=== PATIENT | male | born 2000 ===

== ENCOUNTER 2021-10-30 01:25 | Emergency (ER) | payer OTHER ==
[2021-10-30] MEDS ORDERED: ONDANSETRON 4 MG/2 ML VIAL ONE (02:05)
[2021-10-30] MEDS ORDERED: FAMOTIDINE 20 MG/2 ML VIAL IV ONE (02:05)
[2021-10-30] MEDS ORDERED: NA CHLORIDE 0.9% 1,000 ML ONE ×2 (02:05→03:33)
[2021-10-30 02:20] LABS: Absolute Lymphocytes (CBC) 0.3 K/uL (0.7-4.9); Hematocrit 50.6 % (39.6-49.0); Lymphocytes % 1.7 % (15.3-44.8); MPV 10.5 fL (7.6-11.3); RBC Red Blood Cell Count 5.96 M/uL (4.33-5.43)
[2021-10-30 02:30] LABS: Albumin 4.7 g/dL (3.4-5.0); Potassium 4.2 mmol/L (3.5-5.1); Protein, Total 8.7 g/dL (6.4-8.2)
[2021-10-30 02:39] LABS: Urine Blood Negative (Negative); Urine Glucose Negative (Negative); Urine Protein Negative (Negative); Urine Specific Gravity >=1.030 (1.005-1.030)
[2021-10-30] MEDS ORDERED: CIPROFLOXACIN HCL 500 MG TAB ONE (04:41)
--- NOTE | 2021-10-30 04:46 | ER ---
Nurse's Notes [facility] Name: Rufus Galdamez Age: 21 yrs Sex: Male : 2000 Arrival Date: 10/30/2021 Time: 01:28 Bed 15 Private MD: Diagnosis: Gastroenteritis Presentation: 10/30 01:34 Chief complaint: Patient states: "I went to a food truck around 2 pm. About an hour and tw5 half later I started throwing up and having diarrhea and body aches, nausea.". Coronavirus screen: Vaccine status: Patient reports receiving the 2nd dose of the covid vaccine. Moderna. Ebola Screen: Patient negative for fever greater than or equal to 101.5 degrees Fahrenheit, and additional compatible Ebola Virus Disease symptoms Patient denies exposure to infectious person. Patient denies travel to an Ebola-affected area in the 21 days before illness onset. Initial Sepsis Screen: Does the patient meet any 2 criteria? HR > 90 bpm. Does the patient have a suspected source of infection? No. Patient's initial sepsis screen is negative. Risk Assessment: Do you want to hurt yourself or someone else? Patient reports no desire to harm self or others. Onset of symptoms was October 29, 2021 at 17:00. 01:34 Method Of Arrival: Ambulatory tw5 01:34 Acuity: FABY 3 tw5 Triage Assessment: 01:39 General: Appears uncomfortable, Behavior is calm, cooperative, appropriate for age. tw5 Pain: Complains of pain in abdomen Pain currently is 5 out of 10 on a pain scale. GI: Reports diarrhea, nausea, vomiting. Historical: - PMHx: 01:39 Asthma; tw5 - Immunization history:: Flu vaccine is up to date. - Social history:: Smoking status: Reported history of juuling and/or vaping. Screenin:22 Abuse screen: Denies threats or abuse. Denies injuries from another. Nutritional jennifer screening: No deficits noted. Tuberculosis screening: No symptoms or risk factors identified. Fall Risk None identified. Assessment: 01:43 Reassessment: Pt was recv'd to room 15 at this time, accompanied by family. jennifer 02:22 GI: Abdomen is flat. jennifer 02:32 Reassessment: The pt is watching TV, with his mother at bedside. He is in no distress. jennifer He asked for something to drink, but I told him that given his c/o N/V, that would be premature. 02:50 Reassessment: The pt is being taken to CT. jennifer 03:08 Reassessment: A stool specimen was sent to lab. jennifer 04:35 Reassessment: The pt was given water and he is tolerating it well. jennifer Vital Signs: 01:34 BP 103 / 73; Pulse 104; Resp 18; Temp 98.8(TE); Pulse Ox 97% on R/A; Weight 77.11 kg; tw5 Height 5 ft. 10 in. (177.80 cm); Pain 5/10; 01:58 BP 98 / 65; Pulse 105; Resp 18; Pulse Ox 100% on R/A; Pain 0/10; jennifer 02:21 BP 111 / 71; Pulse 98; Resp 18; Pulse Ox 99% on R/A; Pain 0/10; jennifer 03:42 BP 103 / 72; Pulse 96; Resp 18; Pulse Ox 99% on R/A; Pain 0/10; jennifer 04:16 BP 118 / 78; Pulse 92; Resp 18; Pulse Ox 100% on R/A; Pain 0/10; jennifer 05:04 BP 118 / 72; Pulse 88; Resp 18; Temp 98.5; Pulse Ox 100% on R/A; Pain 0/10; jennifer 01:34 Body Mass Index 24.39 (77.11 kg, 177.80 cm) tw5 ED Course: 01:28 Patient arrived in ED. ja2 01:37 Triage completed. tw5 01:39 Arm band placed on right wrist. tw5 01:43 Consuelo Tomlinson, SAWYER is Primary Nurse. jennifer 01:43 Yasir Flaherty MD is Attending Physician. 7 02:00 CBC with Diff Sent. jennifer 02:00 CMP Sent. jennifer 02:00 Lipase Sent. jennifer 02:22 No provider procedures requiring assistance completed. jennifer 02:23 Patient has correct armband on for positive identification. Placed in gown. Bed in low jennifer position. Call light in reach. Side rails up X 1. Adult w/ patient. 02:23 CBC with Diff Sent. jennifer 02:23 CMP Sent. jennifer 02:23 Lipase Sent. jennifer 03:19 Fecal Leukocyte Stain Sent. jennifer 03:19 Rotavirus Antigen Sent. jennifer 03:19 Stool Culture Sent. jennifer 03:23 CT Abd/Pelvis - IV Contrast Only In Process Unspecified. EDMS 03:28 Stool Culture Sent. jennifer 03:28 Rotavirus Antigen Sent. jennifer 03:28 Fecal Leukocyte Stain Sent. jennifer 05:06 intact, bleeding controlled, No redness/swelling at site. Pressure dressing applied. jennifer Administered Medications: 02:20 Drug: NS 0.9% 1000 ml Route: IV; Rate: 1 bolus; Site: right antecubital; jennifer 03:41 Follow up: IV Status: Completed infusion; IV Intake: 1000ml jennifer 02:20 Drug: Pepcid (famotidine) 20 mg Route: IVP; Site: right antecubital; jennifer 02:23 Follow up: Response: No adverse reaction jennifer 02:20 Drug: Zofran (Ondansetron) 4 mg Route: IVP; Site: right antecubital; jennifer 02:23 Follow up: Response: No adverse reaction jennifer 03:32 Drug: NS 0.9% 1000 ml Route: IV; Rate: 1000 ml; Site: right antecubital; jennifer 04:41 Drug: Cipro (ciprofloxacin) 500 mg Route: PO; jennifer 04:41 Follow up: Response: No adverse reaction jennifer Intake: 03:41 IV: 1000ml; Total: 1000ml. jennifer Outcome: 02:23 Condition: stable jennifer 04:45 Discharge ordered by . Tree 05:05 Discharge instructions given to patient, Instructed on discharge instructions, follow jennifer up and referral plans. medication usage, Demonstrated understanding of instructions, follow-up care, medications, Prescriptions given X x 5 05:06 Discharged to home ambulatory, with family. jennifer 05:06 Patient left the ED. jennifer Signatures: Dispatcher [employer] EDMS Yasir Flaherty MD MD 7 Whitley Dumont Tiffany tw5 Consuelo Tomlinson, RN RN jennifer Corrections: (The following items were deleted from the chart) 04:57 03:19 Ova and Parasites+ drawn and sent. jennifer EDMS
--- NOTE | 2021-10-30 04:46 | EDPHYS ---
Physician Documentation [facility] Name: Rufus Galdamez Age: 21 yrs Sex: Male : 2000 Arrival Date: 10/30/2021 Time: 01:28 Bed 15 Private MD: ED Physician Yasir Flaherty HPI: 10/30 01:50 This 21 yrs old Male presents to ER via Ambulatory with complaints of mh7 Nausea/Vomiting/Diarrhea. 01:50 The patient presents to the emergency department with nausea, that is moderate, mh7 vomiting, that is intermittent, 5 times since the onset of symptoms, described as clear fluid, diarrhea, that is intermittent, 15 times since the onset of symptoms. Onset: The symptoms/episode began/occurred yesterday, at 15:30. Possible causes: bad food exposure, possibly bad restaurant food, Food truck. The symptoms are aggravated by nothing. The symptoms are alleviated by nothing. Associated signs and symptoms: Pertinent negatives: abdominal pain, anorexia, belching, constipation, dysuria, fever, flatulence, GI bleeding, hematuria. Severity of symptoms: At their worst the symptoms were moderate yesterday, in the emergency department the symptoms are unchanged. Historical: - PMHx: 01:39 Asthma; tw5 - Immunization history:: Flu vaccine is up to date. - Social history:: Smoking status: Reported history of juuling and/or vaping. ROS: 01:50 Constitutional: Negative for fever, chills, and weight loss, Eyes: Negative for injury, mh7 pain, redness, and discharge, ENT: Negative for injury, pain, and discharge, Neck: Negative for injury, pain, and swelling, Cardiovascular: Negative for chest pain, palpitations, and edema, Respiratory: Negative for shortness of breath, cough, wheezing, and pleuritic chest pain, Back: Negative for injury and pain, : Negative for injury, bleeding, discharge, and swelling, MS/Extremity: Negative for injury and deformity, Skin: Negative for injury, rash, and discoloration, Neuro: Negative for headache, weakness, numbness, tingling, and seizure, Psych: Negative for depression, anxiety, suicide ideation, homicidal ideation, and hallucinations, Allergy/Immunology: Negative for hives, rash, and allergies, Endocrine: Negative for neck swelling, polydipsia, polyuria, polyphagia, and marked weight changes, Hematologic/Lymphatic: Negative for swollen nodes, abnormal bleeding, and unusual bruising. Exam: 01:50 Constitutional: This is a well developed, well nourished patient who is awake, alert, mh7 and in no acute distress. Head/Face: Normocephalic, atraumatic. Eyes: Pupils equal round and reactive to light, extra-ocular motions intact. Lids and lashes normal. Conjunctiva and sclera are non-icteric and not injected. Cornea within normal limits. Periorbital areas with no swelling, redness, or edema. Neck: Trachea midline, no thyromegaly or masses palpated, and no cervical lymphadenopathy. Supple, full range of motion without nuchal rigidity, or vertebral point tenderness. No Meningismus. Chest/axilla: Normal chest wall appearance and motion. Nontender with no deformity. No lesions are appreciated. 01:50 Respiratory: Lungs have equal breath sounds bilaterally, clear to auscultation and percussion. No rales, rhonchi or wheezes noted. No increased work of breathing, no retractions or nasal flaring. Abdomen/GI: Soft, non-tender, with normal bowel sounds. No distension or tympany. No guarding or rebound. No evidence of tenderness throughout. Back: No spinal tenderness. No costovertebral tenderness. Full range of motion. Skin: Warm, dry with normal turgor. Normal color with no rashes, no lesions, and no evidence of cellulitis. MS/ Extremity: Pulses equal, no cyanosis. Neurovascular intact. Full, normal range of motion. Neuro: Awake and alert, GCS 15, oriented to person, place, time, and situation. Cranial nerves II-XII grossly intact. Motor strength 5/5 in all extremities. Sensory grossly intact. Cerebellar exam normal. Normal gait. Psych: Awake, alert, with orientation to person, place and time. Behavior, mood, and affect are within normal limits. 01:50 Cardiovascular: Rate: tachycardic, Rhythm: regular, Pulses: no pulse deficits are appreciated, Heart sounds: normal, normal S1and S2, Edema: is not appreciated, JVD: is not appreciated. Vital Signs: 01:34 BP 103 / 73; Pulse 104; Resp 18; Temp 98.8(TE); Pulse Ox 97% on R/A; Weight 77.11 kg; tw5 Height 5 ft. 10 in. (177.80 cm); Pain 5/10; 01:58 BP 98 / 65; Pulse 105; Resp 18; Pulse Ox 100% on R/A; Pain 0/10; jennfier 02:21 BP 111 / 71; Pulse 98; Resp 18; Pulse Ox 99% on R/A; Pain 0/10; jennifer 03:42 BP 103 / 72; Pulse 96; Resp 18; Pulse Ox 99% on R/A; Pain 0/10; jennifer 04:16 BP 118 / 78; Pulse 92; Resp 18; Pulse Ox 100% on R/A; Pain 0/10; jennifer 05:04 BP 118 / 72; Pulse 88; Resp 18; Temp 98.5; Pulse Ox 100% on R/A; Pain 0/10; jennifer 01:34 Body Mass Index 24.39 (77.11 kg, 177.80 cm) tw5 MDM: 04:44 Differential diagnosis: gastritis, pancreatitis, viral gastroenteritis, mh7 gastroenteritis. Data reviewed: vital signs, nurses notes, lab test result(s), amylase and lipase, CBC, electrolytes, urinalysis, radiologic studies, CT scan. Data interpreted: Pulse oximetry: on room air is 100 %. Interpretation: normal. Counseling: I had a detailed discussion with the patient and/or guardian regarding: the historical points, exam findings, and any diagnostic results supporting the discharge/admit diagnosis, lab results, radiology results, the need for outpatient follow up, to return to the emergency department if symptoms worsen or persist or if there are any questions or concerns that arise at home. Response to treatment: the patient's symptoms have resolved after treatment, the patient's blood pressure is in an acceptable range, mental status has returned to baseline, the patient no longer shows bradycardia, the patient is not short of breath, the patient is not tachycardic, the patient's pain is gone, the patient's temperature has normalized. 04:[address] [facility] 10/30 01:49 Order name: CBC with Diff; Complete Time: 02:34 [facility] 10/30 01:49 Order name: CMP; Complete Time: 02:34 [facility] 10/30 01:49 Order name: Lipase; Complete Time: : [facility] 10/30 02:39 Order name: Urine Dipstick-Ancillary; Complete Time: 02:41 [facility]DAK 10/30 03:12 Order name: Fecal Leukocyte Stain [facility] 10/30 02:37 Order name: CT Abd/Pelvis - IV Contrast Only [facility] 10/30 03:12 Order name: Rotavirus Antigen [facility] 10/30 03:12 Order name: Stool Culture [facility] 10/30 01:49 Order name: IV Saline Lock; Complete Time: 02:00 [facility] 10/30 01:49 Order name: Labs collected and sent; Complete Time: 02:00 [facility] 10/30 01:49 Order name: Urine Dipstick-Ancillary (obtain specimen); Complete Time: 03:19 [facility] 10/30 04:32 Order name: PO challenge; Complete Time: 04:40 [facility] Administered Medications: 02:20 Drug: NS 0.9% 1000 ml Route: IV; Rate: 1 bolus; Site: right antecubital; jennifer 03:41 Follow up: IV Status: Completed infusion; IV Intake: 1000ml jennifer 02:20 Drug: Pepcid (famotidine) 20 mg Route: IVP; Site: right antecubital; jennifer 02:23 Follow up: Response: No adverse reaction jennifer 02:20 Drug: Zofran (Ondansetron) 4 mg Route: IVP; Site: right antecubital; jennifer 02:23 Follow up: Response: No adverse reaction jennifer 03:32 Drug: NS 0.9% 1000 ml Route: IV; Rate: 1000 ml; Site: right antecubital; jennifer 04:41 Drug: Cipro (ciprofloxacin) 500 mg Route: PO; jennifer 04:41 Follow up: Response: No adverse reaction jennifer Disposition Summary: 10/30/21 04:45 Discharge Ordered Location: Home [facility] Problem: new [facility] Symptoms: have improved [facility] Condition: Stable [facility] Diagnosis - Gastroenteritis [facility] Followup: [facility] - With: Private Physician - When: 1 - 2 days - Reason: Worsening of condition, Recheck today's complaints, Continuance of care, Re-evaluation by your physician Discharge Instructions: - Discharge Summary Sheet [facility] - Viral Gastroenteritis, Adult, [id number] [facility] Forms: - Medication Reconciliation Form [facility] - Thank You Letter [facility] - Antibiotic Education [facility] - Prescription Opioid Use [facility] Prescriptions: - Imodium A-D 2 mg Oral tablet - take 2 tablet by ORAL route as directed As needed after 1st loose stool and 1 mh7 tablet (2 mg) after each next bowel movement; do not exceed 16 mg in 24hrs; 10 tablet; Refills: 0, Product Selection Permitted - ondansetron 4 mg Oral tablet,disintegrating - place 1 tablet by TRANSLINGUAL route every 8 hours As needed; 10 tablet; mh7 Refills: 0, Product Selection Permitted - Pepcid 20 mg Oral Tablet - take 1 tablet by ORAL route every 12 hours for 5 days; 10 tablet; Refills: 0, mh7 Product Selection Permitted - Cipro 500 mg Oral Tablet - take 1 tablet by ORAL route every 12 hours for 5 days; 10 tablet; Refills: 0, mh7 Product Selection Permitted - dicyclomine 20 mg Oral Tablet - take 1 tablet by ORAL route 4 times per day As needed; 20 tablet; Refills: 0, mh7 Product Selection Permitted Signatures: Dispatcher [employer] EDMS Yasir Flaherty MD MD [facility] Kellie Jackson 5 Consuelo Tomlinson RN RN jennifer Corrections: (The following items were deleted from the chart) 04:57 03:12 Ova and Parasites+MRHERMINIA.BRZ ordered. EDMS EDMS
[2021-10-30 07:00] VITALS: O2SAT 100
[2021-10-30 07:02] VITALS: BP 118/72; TEMP 98.5
--- NOTE | 2021-10-30 13:13 | RAD REPORT ---
EXAM DESCRIPTION: CT - Abdomen Pelvis W Contrast - 10/30/2021 7:02 am COMPARISON: None. CLINICAL HISTORY: [facility] Diarrhea;Nausea / vomiting TECHNIQUE: CT of the abdomen and pelvis was acquired with IV contrast material. Coronal and sagitt al reconstructions were obtained. Automated exposure control was utilized on this examination as a dose lowering technique. FINDINGS: Lung bases: Clear. Liver: Normal. Gallbladder and biliary: Normal gallbladder. Unremarkable biliary tree. Pancreas: Normal. Spleen: Normal. Adrenal glands: Normal adrenal glands. Kidneys: Normal kidneys Stomach and Small Bowel: The stomach and small bowel are normal. Urinary bladder: Normal. Prostate/Male Urogenital: Normal. Colon and Appendix: The colon is unremarkable. No evidence of appendicitis. Retroperitoneum and lymph nodes: Normal. Vascular: Unremarkable. Peritoneal cavity: No ascites or free air. Musculoskeletal and soft tissues: Soft tissues are unremarkable. No aggressive bone lesions. No com pression fracture. IMPRESSION: ABDOMEN/PELVIS No acute intra-abdominal abnormality. Electronically signed by: Marcelino Max MD 10/30/2021 4:27 AM CDT Due to temporary technical issues with the PACS/Fluency reporting system, reports are being signed by the in house radiologists without review as a courtesy to insure prompt reporting. The interpreting radiologist is fully responsible for the content of the report.
== END 2021-10-30 05:06 | disposition home or self-care (01) ==
LOC: ER 01:25
DX: K52.9 Noninfective gastroenteritis and colitis, unspecified (principal)
CPT/HCPCS: 96361; 87045; 85025; 36415; 89055; 87046; 81003; 83690; 80053; 87425; 74177; 96375; 96374; 99284; Q9967; J7030 ×2; J2405